=== PATIENT | female | born 1980 | race Caucasian/White ===

== ENCOUNTER → 2017-02-08 | Outpatient (CLI) | payer OTHER ==
--- NOTE | 2017-02-12 13:13 | MR ---
EXAM DATE: 02/08/17 PATIENT'S AGE: 36 Patient: HARRY BOWEN Facility: [facility] Site . Site : 1980 Study: MRI-Head W/ and W/O Cont [id number]/24/2017 11:50:16 AM Ordering Physician: David Bahena Final Report: Indication: Migrainous headaches. Technique: Noncontrast sagittal T1, axial FLAIR, T2, diffusion, post contrast T1 weighted sequences are provided. No comparisons. Findings: The ventricles, sulci and gyri are normal size, shape and contour for age. The midline structures are centrally located with no evidence of shift. There are no suspicious intra or extra-axial fluid collections. No region of restricted diffusion or suspicious regions of abnormal parenchymal enhancement. Expected flow voids in the cavernous carotids and basilar artery. Impression: Unremarkable MRI of the head. Dictated by Inocencio Dailey MD @ Feb 12 2017 9:33AM Signed by: Inocencio Dailey MD @02/12/2017 9:34:56 AM (Electronic Signature) Report Signed by Proxy. [facility]OSPITALSandra
== END ==
LOC: MW.MRI 10:36
PROVIDERS: ATTEND Psychiatry & Neurology Neuromuscular Medicine
DX: G43.109 Migraine with aura, not intractable, without status migrainosus (principal)
CPT/HCPCS: 70553; 70553-26

== ENCOUNTER 2020-12-05 11:01 | Day surgery (SDC) | payer OTHER ==
[2020-12-05] MEDS ORDERED: Betamethasone Acetate/Betamethasone Sod Phosphate 30 MG/5 ML MDV EPIDUR ONE (12:00)
[2020-12-05] MEDS ORDERED: Ropivacaine 0.5% 5 MG/ML 30 ML SDV INJECT ONE (12:00)
[2020-12-05] MEDS ORDERED: Lidocaine 2% 5 ML SDV INJECT ONE (12:00)
[2020-12-05] MEDS ORDERED: Iopamidol 200-M 10 ML vial ITHECAL ONE (12:00)
--- NOTE | 2020-12-09 09:56 | OR ---
SURGEON: Kianna Sharma D.O. DATE OF PROCEDURE: 12/05/2020 PRIMARY SURGEON: Kianna Sharma D.O. ASSISTANTS: OR staff present: 1. Bernie Hare RN. 2. Nohemy Maldonado RN. 3. RT Jesús. WOUND CLASS: I. PREOPERATIVE DIAGNOSES: 1. Coccydynia. 2. Chronic sacral pain. POSTOPERATIVE DIAGNOSES: 1. Coccydynia. 2. Chronic sacral pain. PROCEDURES PERFORMED: 1. Coccyx injection. 2. Fluoroscopic guidance for needle placement. 3. Local with oral Valium for sedation. PREOPERATIVE PAIN: 5+/10. POSTOPERATIVE PAIN: 1/10. SCREENING QUESTIONS: The patient answered "no" to all of the following questions: 1. Are you allergic to latex? 2. Do you have a bleeding disorder? 3. Do you have any current local or systemic infections? 4. Are you taking any anti-inflammatories or blood thinners? 5. Do you have any joint replacements, heart valve replacements, or a pacemaker? DESCRIPTION OF PROCEDURE: The patient had the procedure thoroughly explained including all possible risks, benefits and alternatives. Consent was signed in my clinic indicating understanding and willingness to proceed. The patient presented to [facility] and was escorted to the dressing room to disrobe and change into a hospital gown. Preoperative vital signs were taken and stable. The patient reported that Valium was taken prior to the procedure. The patient was brought back to the procedure room and placed in the prone position on the procedure room table. A pillow was placed under the hips in order to flatten the lumbar lordosis. The back was prepped with ChloraPrep and sterilely draped. All personnel in the operating room were dressed in appropriate attire including surgical scrubs, head and shoe covers. This was to ensure sterility while in the treatment room. During the time fluoroscopy was in use, all personnel in the operating room wore lead rdz with thyroid collars. Sterile technique was used throughout the procedure. The patient was awake and conversant throughout the procedure. There was no evidence of infection at the site of needle insertion. Skeletal landmarks were identified under fluoroscopy for the coccyx injection. Skin was anesthetized with 2% lidocaine with a sterile 27-gauge 1.5 inch needle. Then a 22-gauge spinal needle was placed at the coccyx under fluoroscopic guidance. No heme, cerebrospinal fluid, or paresthesias were noted. Isovue-200 contrast dye was injected in 0.2 cubic centimeter increments and seen to outline coccygeal area in both AP and lateral views. There was no intravascular flow pattern observed under live fluoroscopy. Then a mixture of 12 milligrams of Celestone and local was slowly injected after negative aspiration. The patient tolerated the procedure well. Vital signs were stable during and after the procedure. The staff escorted the patient to the recovery area and the patient was released in stable condition after a brief stay in the recovery room monitored by the nurse. The patient was given both oral and written discharge and follow up instructions with recommendation to follow up given for 4 weeks. The patient voiced understanding including understanding of those signs and symptoms that would require emergency care. The patient knows how to contact the office if there are any additional problems or questions in the meantime. KARIS / TAISHA /[id number]
== END 2020-12-05 12:54 ==
LOC: MW.SDS 11:01
PROVIDERS: ATTEND Anesthesiology
DX: G89.29 Other chronic pain (principal); M53.3 Sacrococcygeal disorders, not elsewhere classified; E78.00 Pure hypercholesterolemia, unspecified; E66.9 Obesity, unspecified; F17.210 Nicotine dependence, cigarettes, uncomplicated; F41.9 Anxiety disorder, unspecified; Z88.8 Allergy status to other drugs, medicaments and biological substances; Z88.5 Allergy status to narcotic agent; Z79.899 Other long term (current) drug therapy; Z98.890 Other specified postprocedural states; Z68.41 Body mass index [BMI] 40.0-44.9, adult
CPT/HCPCS: 20605; J0702; J2795; Q9966

== ENCOUNTER 2023-02-01 16:48 | Emergency (ER) | payer OTHER ==
[2023-02-01] MEDS ORDERED: traMADol 50 MG Tab PO ONE (17:23)
[2023-02-01 18:57] VITALS: BP 118/90; PULSE 75
== END 2023-02-01 18:56 | disposition home or self-care (01) ==
LOC: MW.ED 16:48
DX: S93.402A Sprain of unspecified ligament of left ankle, initial encounter (principal); E66.9 Obesity, unspecified; Z68.41 Body mass index [BMI] 40.0-44.9, adult; Z88.5 Allergy status to narcotic agent; Z88.8 Allergy status to other drugs, medicaments and biological substances; X50.1XXA Overexertion from prolonged static or awkward postures, initial encounter
CPT/HCPCS: 73610; 73620; 99283; A9270

== ENCOUNTER 2024-05-28 13:33 | Emergency (ER) | payer OTHER ==
[2024-05-28] MEDS: Lidocaine 1% 10 ML MDV INJECT ONE (14:05)
[2024-05-28 14:46] VITALS: BP 131/79; PULSE 70
== END 2024-05-28 14:45 | disposition home or self-care (01) ==
LOC: MW.ED 13:33
DX: S61.215A Laceration without foreign body of left ring finger without damage to nail, initial encounter (principal); E78.00 Pure hypercholesterolemia, unspecified; E66.9 Obesity, unspecified; Z75.8 Other problems related to medical facilities and other health care; Z88.5 Allergy status to narcotic agent; Z88.8 Allergy status to other drugs, medicaments and biological substances; Z79.899 Other long term (current) drug therapy; Z68.41 Body mass index [BMI] 40.0-44.9, adult; W26.0XXA Contact with knife, initial encounter
CPT/HCPCS: 12001; 99282; 99283; J3490